=== PATIENT | female | born 1955 | race Hispanic/Latino ===

== ENCOUNTER 2024-08-05 20:54 | Inpatient (IN) | payer MEDICARE ==
[~2024-08-05 20:54] MED LIST: Iopamidol 300 61% 100 ML VIAL FS ONE; Piperacillin/Tazobactam 3.375 GM in Sodium Chloride 0.9% 100 ML IVPB SCH
[2024-08-05 21:43] LABS: Bilirubin Neg (Negative); Blood, Urine 25 (Negative); Glucose, Urine (Dipstick) Normal (Negative); Ketone, Urine 15 mg/dL (Negative); Leukocyte 500 (Negative); Nitrite Positive (Negative); Protein, Urine (Dipstick) 30 mg/dl (Neg-Trace); Specific Gravity, Urine 1.015 (1.005-1.030)
[2024-08-05 21:47] LABS: Clarity Hazy (Clear)
[2024-08-05] MEDS ORDERED: Acetaminophen 500 MG TAB ONE (21:50)
[2024-08-05] MEDS ORDERED: Piperacillin/Tazobactam 3.375 GM VIAL ONE (21:51)
[2024-08-05 21:59] LABS: Bacteria/HPF 4+ HPF (None Seen); CAUTI Indications for Culture Dysuria,urgency,freq; RBC/HPF 0-3 HPF (0-3); Urine Culture Reflex Yes Yes
[2024-08-05 22:09] LABS: Hematocrit 42.7 % (34.9-44.5); Hemoglobin 14.1 g/dL (12.0-15.5); Mean Corpuscular Hemoglobin 30.6 pg (27.0-33.0); Mean Corpuscular Volume 92.6 fL (81.6-98.3); Platelet Count 216 10x3/uL (150-450); RBC Distribution Width 11.9 % (11.5-14.5); Red Blood Cell (RBC) Count 4.61 10x6/uL (3.90-5.03); White Blood Cell (WBC) Count 10.21 10x3/uL (3.5-10.5)
[2024-08-05 22:12] LABS: ALT (SGPT) 13 U/L (8-55); AST (SGOT) 18 U/L (5-34); Albumin 3.8 g/dL (3.4-4.8); Alkaline Phosphatase 111 U/L (40-110); Anion Gap 15 mmol/L (10-20); BUN (Urea Nitrogen) 11 mg/dL (9.8-20.1); Bilirubin, Total 0.6 mg/dL (0.2-1.2); Calc. Creatinine Clearance 0 mL/min (70-130); Calcium 9.1 mg/dL (7.8-10.44); Carbon Dioxide 23 mmol/L (23-31); Chloride 103 mmol/L (98-107); Estimated GFR 59; Globulin 3.9 g/dL (2.4-3.5); Glucose 138 mg/dL (80-115); Potassium 3.2 mmol/L (3.5-5.1); Protein, Total 7.7 g/dL (5.8-8.1); Sodium 138 mmol/L (136-145)
[2024-08-05 22:29] LABS: Band 15 % (5-11); Lymphocytes 11 % (21-51); MDiff Complete? YES; Monocytes 8 % (0-10); Neutrophil 65 % (42-75); Platelet Adequacy Comment Appears Adequate; RBC Morphology Within Normal Limits; Reactive Lymphocytes 1 % (0-10)
[2024-08-05] MEDS ORDERED: Ondansetron PF 4 MG/2 ML Vial IVP PRN (23:41)
[2024-08-05] MEDS ORDERED: Calcium Carbonate 500 MG ChewTAB PO PRN (23:41)
[2024-08-05] MEDS ORDERED: Senokot S 8.6-50 MG TAB PO PRN (23:41)
[2024-08-05] MEDS ORDERED: Communication Order-Pharmacy FS SCH (23:45)
[2024-08-06 00:26] VITALS: BMI 28.6
[2024-08-06] MEDS: Lactated Ringer's 1,000 ML IV SCH ×3 (01:14→23:15)
[2024-08-06] MEDS: Potassium Chloride 20 MEQ TAB PO SCH (01:16)
[2024-08-06] MEDS: Acetaminophen 325 MG TAB PO PRN (01:26)
[2024-08-06] MEDS: ALPRAZolam 0.25 MG TAB PO SCH ×2 (01:26→21:53)
[2024-08-06] MEDS: Piperacillin/Tazobactam 3.375 GM in Sodium Chloride 0.9% 100 ML IVPB SCH (02:54)
[2024-08-06 04:27] LABS: #Basophils 0.04 10x3/uL (0.0-0.2); #Eosinophils Less than 0.03 10x3/uL (0.0-0.5); #Monocytes 0.93 10x3/uL (0.0-1.1); #Neutrophils 6.53 10x3/uL (1.5-8.4); %Basophils 0.4 % (0.0-2.0); %Eosinophils 0.1 % (0.0-6.0); %Neutrophils 70.3 % (40.0-75.0); Hematocrit 40.1 % (34.9-44.5); Hemoglobin 13.5 g/dL (12.0-15.5); Mean Corpuscular HGB CONC 33.7 g/dL (32.0-36.0); Mean Corpuscular Hemoglobin 32.1 pg (27.0-33.0); Mean Corpuscular Volume 95.2 fL (81.6-98.3); Mean Platelet Volume 10.1 fL (7.4-10.4); Platelet Count 196 10x3/uL (150-450); RBC Distribution Width 12.3 % (11.5-14.5); Red Blood Cell (RBC) Count 4.21 10x6/uL (3.90-5.03)
[2024-08-06 04:55] LABS: ALT (SGPT) 9 U/L (8-55); AST (SGOT) 14 U/L (5-34); Albumin 3.4 g/dL (3.4-4.8); Alkaline Phosphatase 91 U/L (40-110); Anion Gap 12 mmol/L (10-20); BUN (Urea Nitrogen) 10 mg/dL (9.8-20.1); Bilirubin, Total 0.8 mg/dL (0.2-1.2); Calc. Creatinine Clearance 73 mL/min (70-130); Calcium 9.1 mg/dL (7.8-10.44); Carbon Dioxide 25 mmol/L (23-31); Chloride 106 mmol/L (98-107); Estimated GFR 77; Globulin 3.3 g/dL (2.4-3.5); Glucose 107 mg/dL (80-115); Lipase 12 U/L (8-78); Potassium 3.4 mmol/L (3.5-5.1); Protein, Total 6.7 g/dL (5.8-8.1); Sodium 140 mmol/L (136-145)
[2024-08-06] MEDS: FLU (Fluad Triv) TS24-25 (65UP)/MF59C/PF 45 MCG/0.5 ML Syringe IM ONE (05:29)
[2024-08-06] MEDS: Ketorolac Tromethamine 30 MG (1 mL) VIAL IVP PRN (06:49)
[2024-08-06] MEDS: Enoxaparin 40 MG (0.4 mL) SYRINGE SC SCH (09:26)
[2024-08-06] MEDS: Lisinopril 10 MG TAB PO SCH (09:28)
[2024-08-06] MEDS: Aspirin 325 mg Enteric Coated Tablet PO SCH (09:28)
[2024-08-06] MEDS: Pantoprazole 40 MG DR.TAB PO SCH (09:28)
[2024-08-06 15:25] LABS: Hemoglobin A1c 5.7 % (4.0-6.0)
[2024-08-06] MEDS: Gabapentin 300 MG CAP PO SCH (21:52)
[2024-08-06] MEDS: Atorvastatin Calcium 40 MG TAB PO SCH (21:53)
[2024-08-07 04:25] LABS: #Basophils 0.03 10x3/uL (0.0-0.2); #Eosinophils Less than 0.03 10x3/uL (0.0-0.5); #Monocytes 0.68 10x3/uL (0.0-1.1); #Neutrophils 4.29 10x3/uL (1.5-8.4); %Basophils 0.5 % (0.0-2.0); %Eosinophils 0.2 % (0.0-6.0); %Lymphocytes 19.6 % (18.0-47.0); %Monocytes 10.9 % (0.0-10.0); %Neutrophils 68.5 % (40.0-75.0); Hematocrit 35.2 % (34.9-44.5); Hemoglobin 12.2 g/dL (12.0-15.5); Mean Corpuscular HGB CONC 34.7 g/dL (32.0-36.0); Mean Corpuscular Hemoglobin 32.2 pg (27.0-33.0); Mean Corpuscular Volume 92.9 fL (81.6-98.3); Mean Platelet Volume 10.2 fL (7.4-10.4); Platelet Count 176 10x3/uL (150-450); RBC Distribution Width 12.3 % (11.5-14.5); Red Blood Cell (RBC) Count 3.79 10x6/uL (3.90-5.03); White Blood Cell (WBC) Count 6.26 10x3/uL (3.5-10.5)
[2024-08-07 04:45] LABS: ALT (SGPT) 12 U/L (Less than 34); AST (SGOT) 25 U/L (11-34); Albumin 2.9 g/dL (3.1-4.5); Alkaline Phosphatase 84 U/L (40-110); Anion Gap 11 mmol/L (10-20); BUN (Urea Nitrogen) 6 mg/dL (9.8-20.1); Bilirubin, Total 0.5 mg/dL (0.3-1.2); Calc. Creatinine Clearance 84 mL/min (70-130); Calcium 8.3 mg/dL (7.8-10.44); Carbon Dioxide 23 mmol/L (23-31); Chloride 106 mmol/L (98-107); Estimated GFR 91; Globulin 3.2 g/dL (2.4-3.5); Glucose 151 mg/dL (80-115); Magnesium 1.9 mg/dL (1.6-2.6); Potassium 2.8 mmol/L (3.5-5.1); Protein, Total 6.1 g/dL (5.8-8.1); Sodium 137 mmol/L (136-145)
[2024-08-07] MEDS: Oxybutynin 5 MG TAB PO SCH (06:32)
[2024-08-07] MEDS: Potassium Chloride 20 MEQ TAB PO SCH ×2 (06:40→13:34)
[2024-08-07] MEDS: cefTRIAXone\\ROCEPHIN 1 GM in Sodium Chloride 0.9% 100 ML IVPB SCH (16:50)
[2024-08-08 03:50] LABS: #Basophils Less than 0.03 10x3/uL (0.0-0.2); #Eosinophils Less than 0.03 10x3/uL (0.0-0.5); #Monocytes 1.13 10x3/uL (0.0-1.1); %Basophils 0.3 % (0.0-2.0); %Eosinophils 0.3 % (0.0-6.0); %Lymphocytes 27.1 % (18.0-47.0); %Monocytes 15.6 % (0.0-10.0); %Neutrophils 56.6 % (40.0-75.0); Hematocrit 37.4 % (34.9-44.5); Hemoglobin 13.2 g/dL (12.0-15.5); Mean Corpuscular HGB CONC 35.3 g/dL (32.0-36.0); Mean Corpuscular Hemoglobin 32.2 pg (27.0-33.0); Mean Corpuscular Volume 91.2 fL (81.6-98.3); Mean Platelet Volume 10.1 fL (7.4-10.4); Platelet Count 196 10x3/uL (150-450); RBC Distribution Width 12.5 % (11.5-14.5); White Blood Cell (WBC) Count 7.24 10x3/uL (3.5-10.5)
[2024-08-08 04:11] LABS: ALT (SGPT) 13 U/L (Less than 34); AST (SGOT) 21 U/L (11-34); Albumin 3.1 g/dL (3.1-4.5); Alkaline Phosphatase 103 U/L (40-110); Anion Gap 10 mmol/L (10-20); BUN (Urea Nitrogen) 7 mg/dL (9.8-20.1); Bilirubin, Total 0.4 mg/dL (0.3-1.2); Calc. Creatinine Clearance 93 mL/min (70-130); Calcium 8.8 mg/dL (7.8-10.44); Carbon Dioxide 24 mmol/L (23-31); Chloride 107 mmol/L (98-107); Estimated GFR 96; Globulin 3.5 g/dL (2.4-3.5); Glucose 125 mg/dL (80-115); Potassium 3.4 mmol/L (3.5-5.1); Protein, Total 6.6 g/dL (5.8-8.1); Sodium 138 mmol/L (136-145)
[2024-08-08 08:37] VITALS: TEMP 98.2
[2024-08-08] MEDS: cefTRIAXone\\ROCEPHIN 1 GM in Sodium Chloride 0.9% 100 ML IVPB SCH (09:34)
[2024-08-08 09:35] VITALS: BP 144/84
[2024-08-08] MEDS: Potassium Chloride 20 MEQ TAB PO SCH (09:35)
== END 2024-08-08 13:29 | disposition home or self-care (01) | DRG 872 ==
LOC: CSHERS 20:54 → CSHTELE 23:39
PROVIDERS: ADMIT Student in an Organized Health Care Education/Training Program; ATTEND Internal Medicine
DX: A41.51 Sepsis due to Escherichia coli [E. coli] (principal); N39.0 Urinary tract infection, site not specified; K82.9 Disease of gallbladder, unspecified; E78.5 Hyperlipidemia, unspecified; F39 Unspecified mood [affective] disorder; F41.9 Anxiety disorder, unspecified; F32.A Depression, unspecified; K21.9 Gastro-esophageal reflux disease without esophagitis; E87.6 Hypokalemia; R94.31 Abnormal electrocardiogram [ECG] [EKG]; R73.9 Hyperglycemia, unspecified; I10 Essential (primary) hypertension; Z86.73 Personal history of transient ischemic attack (TIA), and cerebral infarction without residual deficits
CPT/HCPCS: 36415; 71045; 74177; 76705; 78226; 80053; 81001; 83036; 83605; 83690; 83735; 85025; 86140; 87040; 87077; 87086; 87186; 87428; 93005; 93010; 96365; A9537; J0696; J1650; J1885; J2543; J7120; Q9967